=== PATIENT | female | born 1945 | race Caucasian/White ===

== ENCOUNTER 2016-09-22 08:20 | Day surgery (SDC) | payer MEDICARE, BC ==
--- NOTE | 2016-09-21 11:25 | PCM.PREANE ---
Preanesthetic Assessment - ANESTHESIA/TRANSFUSION/FAMILY HX Anesthesia/Transfusion History: Prior Anesthesia Family History of Anesthesia Reaction: No - PHYSICAL ASSESSMENT Height: 1.57 m Weight: 86.183 kg ASA Class: 2 - ALLERGIES Allergies/Adverse Reactions: Allergies Allergy/AdvReac Type Severity Reaction Status Date / Time sulfamethoxazole Allergy Cannot Verified 09/17/16 10:37 [From Bactrim] Remember trimethoprim [From Bactrim] Allergy Cannot Verified 09/17/16 10:37 Remember - BLOOD Blood Available: No - ANESTHESIA PLAN Anesthesia Type Planned: MAC PreAnesthesia Questionnaire Cardiovascular History: Reports: Heart murmur, High cholesterol, Hypertension Other Cardiovascular History: states has hx of heart murmur Gastrointestinal History: Reports: GERD Genitourinary History: Reports: UTI, recurrent Musculoskeletal History: Reports: Arthritis, Gout Endocrine/Metabolic History: Reports: Diabetes, type II, Obesity/BMI 30+ - Past Surgical History Head Surgeries/Procedures: Reports: None GI Surgical History: Reports: Colon, Colonoscopy, Hernia, abdominal Other GI Surgeries/Procedures: hx hemicolectomy for colon cancer Female Surgical History: Reports: Hysterectomy - SUBSTANCE USE Smoking Status *Q: Never Smoker Recreational Drug Use History: No - HOME MEDS Home Medications: Home Meds Allopurinol [Zyloprim] 300 mg PO DAILY 09/17/16 [History] Atenolol 100 mg PO DAILY 09/17/16 [History] Fluticasone Propionate [Flonase Allergy Relief] 2 spray NASBOTH BID PRN [History] Hydrocortisone [Proctosol-HC] 1 applic RECTAL ASDIRECTED PRN 09/17/16 [History] Simvastatin [Zocor] 20 mg PO BEDTIME 09/17/16 [History] Triamterene/Hydrochlorothiazid [Triamterene-HCTZ 75-50 MG] 0.5 tab PO DAILY 10/01 [History] Zolpidem Tartrate 10 mg PO BEDTIME PRN 09/17/16 [History] metFORMIN HCl [Metformin HCl ER] 500 mg PO ACBREAKFAST 09/17/16 [History] metFORMIN HCl [Metformin HCl] 0.5 tab PO PCDINNER 09/17/16 [History] - CURRENT (IN HOUSE) MEDS Current Meds: Current Medications Lactated Ringer's (Ringers, Lactated) 1,000 mls @ 125 mls/hr IV ASDIRECTED MELISSA Sodium Chloride (Saline Flush) 10 ml FLUSH ASDIRECTED PRN PRN Reason: Keep Vein Open Sodium Chloride (Saline Flush) 2.5 ml FLUSH ASDIRECTED PRN PRN Reason: Keep Vein Open
[~2016-09-22 08:20] MED LIST: Lactated Ringers 1,000 ML IV SCH; Sodium Chloride 0.9% 10 ML Syringe FLUSH PRN; Sodium Chloride 0.9% 2.5 ML Syringe FLUSH PRN
[2016-09-22] MEDS ORDERED: Lidocaine 2% 5 ML SDV ONE (09:51)
[2016-09-22] MEDS ORDERED: Propofol 200 MG/20 ML SDV ONE (09:52)
[2016-09-22] MEDS ORDERED: fentaNYL 100 MCG/2 ML SDV ONE (09:52)
[2016-09-22] MEDS ORDERED: Midazolam 1 MG/ML 2 ML SDV ONE (09:52)
--- NOTE | 2016-09-22 09:55 | PCM.PREANE ---
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 Respiratory: Reports: no symptoms Cardiovascular: Reports: no symptoms GI: Reports: no symptoms - PHYSICAL ASSESSMENT O2 Sat by Pulse Oximetry: 96 RR: 16 Vital Signs: Last Vital Signs Temp 36.6 C 09/22/16 08:43 Pulse 65 09/22/16 08:43 Resp 16 09/22/16 08:43 BP 138/79 09/22/16 08:43 Pulse Ox 96 09/22/16 08:43 Height: 1.57 m Weight: 86.183 kg NPO Status Date: 09/22/16 NPO Status Time: 07:00 ASA Class: 2 Mental Status: alert & oriented x3 Airway Class: Mallampati = 2 Dentition: Reports: normal dentition ROM/Head Extension: full Respiratory Status: lungs clear to auscultation bilaterally Cardiovascular Status: regular rate & rhythm, normal S1, S2, no murmur - LAB Values: Laboratory Last Values POC Glucose 113 mg/dL (60-110) H 09/22/16 08:51 - ALLERGIES Allergies/Adverse Reactions: Allergies Allergy/AdvReac Type Severity Reaction Status Date / Time sulfamethoxazole Allergy Cannot Verified 09/17/16 10:37 [From Bactrim] Remember trimethoprim [From Bactrim] Allergy Cannot Verified 09/17/16 10:37 Remember - BLOOD Blood Available: No - ANESTHESIA PLAN Beta-Tjea Last Dose Date: 09/22/16 Beta-Teja Last Dose Time: 07:00 Anesthesia Type Planned: MAC - ACKNOWLEDGEMENTS Pt an appropriate candidate for the planned anesthesia: Yes Alternatives and risks of anesthesia discussed w pt/guardian: Yes Pt/Guardian understands and agree with anesthesia plan: Yes PreAnesthesia Questionnaire Cardiovascular History: Reports: Heart murmur, High cholesterol, Hypertension Other Cardiovascular History: states has hx of heart murmur Gastrointestinal History: Reports: GERD Genitourinary History: Reports: UTI, recurrent 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: Musculoskeletal History: Reports: Arthritis, Gout Endocrine/Metabolic History: Reports: Diabetes, type II, Obesity/BMI 30+ - Past Surgical History Head Surgeries/Procedures: Reports: None GI Surgical History: Reports: Colon, Colonoscopy, Hernia, abdominal Other GI Surgeries/Procedures: hx hemicolectomy for colon cancer Female Surgical History: Reports: Hysterectomy - SUBSTANCE USE Smoking Status *Q: Never Smoker Recreational Drug Use History: No - HOME MEDS Home Medications: Home Meds Allopurinol [Zyloprim] 300 mg PO DAILY 09/17/16 [History] Atenolol 100 mg PO DAILY 09/17/16 [History] Fluticasone Propionate [Flonase Allergy Relief] 2 spray NASBOTH BID PRN [History] Hydrocortisone [Proctosol-HC] 1 applic RECTAL ASDIRECTED PRN 09/17/16 [History] Simvastatin [Zocor] 20 mg PO BEDTIME 09/17/16 [History] Triamterene/Hydrochlorothiazid [Triamterene-HCTZ 75-50 MG] 0.5 tab PO DAILY 10/01 [History] Zolpidem Tartrate 10 mg PO BEDTIME PRN 09/17/16 [History] metFORMIN HCl [Metformin HCl ER] 500 mg PO ACBREAKFAST 09/17/16 [History] metFORMIN HCl [Metformin HCl] 0.5 tab PO PCDINNER 09/17/16 [History] - CURRENT (IN HOUSE) MEDS Current Meds: Current Medications Lactated Ringer's (Ringers, Lactated) 1,000 mls @ 125 mls/hr IV ASDIRECTED MELISSA Last Admin: 09/22/16 08:46 Dose: 125 mls/hr Sodium Chloride (Saline Flush) 10 ml FLUSH ASDIRECTED PRN PRN Reason: Keep Vein Open Sodium Chloride (Saline Flush) 2.5 ml FLUSH ASDIRECTED PRN PRN Reason: Keep Vein Open
--- NOTE | 2016-09-22 12:47 | PCM.OPNOTE ---
- General Post-Op/Procedure Note Date of Surgery/Procedure: 09/22/16 Operative Procedure(s): Screening colonoscopy Findings: Normal colon Pre Op Diagnosis: History of colon cancer Post-Op Diagnosis: History of colon cancer Anesthesia Technique: MADAN Primary Surgeon: Shante Armstrong Condition: Good
--- NOTE | 2016-09-22 12:59 | PCM.POSTAN ---
POST ANESTHESIA ASSESSMENT - MENTAL STATUS Mental Status: alert, oriented - RESPIRATORY Respiratory Status: respiratory rate WNL, airway patent, O2 saturation stable - CARDIOVASCULAR CV Status: pulse rate WNL, blood pressure stable - GASTROINTESTINAL GI Status: no symptoms - POST OP HYDRATION Hydration Status: adequate & stable
--- NOTE | 2016-09-22 13:00 | PCM48HPAN ---
Post Anesthesia Note - EVALUATION WITHIN 48HRS OF ANESTHETIC Vital Signs in Normal Range: Yes Patient Participated in Evaluation: Yes Respiratory Function Stable: Yes Airway Patent: Yes Cardiovascular Function Stable: Yes Hydration Status Stable: Yes Pain Control Satisfactory: Yes Nausea and Vomiting Control Satisfactory: Yes Mental Status Recovered: Yes
[2016-09-22 13:09] VITALS: BP 140/74
--- NOTE | 2016-09-23 02:51 | OR ---
SURGEON: SUNSHINE TORRES MD DATE OF PROCEDURE: 09/22/2016 PREOPERATIVE DIAGNOSIS: History of colon cancer status post right hemicolectomy. POSTOPERATIVE DIAGNOSIS: History of colon cancer status post right hemicolectomy, hemorrhoids and diverticulosis. PROCEDURE PERFORMED: Screening colonoscopy. INSTRUMENT USED: Olympus colonoscope. ANESTHESIA: MAC. EXTENT OF EXAM: To the cecum. PREPARATION: Good. LIMITATIONS: None. INDICATIONS FOR EXAMINATION: The patient is a 70-year-old female with a personal history of colon cancer status post right hemicolectomy. She is here for a followup screening colonoscopy. We discussed the risks of the procedure including bleeding, infection, or damage to surrounding structures, including perforation. We discussed the procedure itself as well as expected perioperative course. After the patient was given ample time to ask questions, the patient verbalized understanding and wished to proceed. Preoperative clearance was obtained via the patient's primary care provider. PROCEDURE IN DETAIL: The patient was brought to the endoscopy suite and placed in left lateral decubitus position. A time-out was completed verifying the patient's name, age, date of , allergies, and procedure to be performed. Monitored anesthesia care was induced and continuous oxygen was provided via face mask throughout the procedure. After adequate sedation was achieved, a digital rectal exam was performed. This showed moderate hemorrhoidal disease with hypertrophied papilla, but was otherwise within normal limits. A well lubricated colonoscope was then inserted in the rectum and advanced under direct visualization to the level of the patient's anastomosis. A photograph was taken of this area and meticulous inspection was undertaken to identify any evidence of recurrence. The anastomosis appeared healthy and no polyps or masses concerning for return of malignancy was noted. The scope was then fully withdrawn while examining the color, texture, anatomy, and integrity of the mucosa from the cecum to the anal canal. The findings were consistent with diffuse diverticular disease throughout the patient's descending and sigmoid colon. The scope was then brought into the rectum and retroflexed to allow visualization of the anal canal opening. This appeared normal and a photograph was taken. The scope was then straightened out and removed from the patient. The procedure was terminated. The patient was transferred to the recovery room in stable condition. Time from anastomosis to anus was 12 min. ENDOSCOPIC DIAGNOSIS: Diverticulosis, mild hemorrhoidal disease, and no evidence of polyps or masses within the colon. RECOMMENDATION: Follow up in clinic in one year. LYNETTE / LETA /[id number] [place]
== END 2016-09-22 13:20 | disposition home or self-care (01) ==
LOC: MW.SDS 08:20
PROVIDERS: ATTEND Surgery
PROC: 0DJD8ZZ Inspection of Lower Intestinal Tract, Via Natural or Artificial Opening Endoscopic (ICD-10-PCS; principal; 2016-09-22)
DX: Z12.11 Encounter for screening for malignant neoplasm of colon (principal); K57.30 Diverticulosis of large intestine without perforation or abscess without bleeding; K64.9 Unspecified hemorrhoids; Z85.038 Personal history of other malignant neoplasm of large intestine; Z98.0 Intestinal bypass and anastomosis status; E11.9 Type 2 diabetes mellitus without complications; I10 Essential (primary) hypertension; E78.00 Pure hypercholesterolemia, unspecified; M10.9 Gout, unspecified; E66.9 Obesity, unspecified; Z79.899 Other long term (current) drug therapy
CPT/HCPCS: 82962; G0105; J2250; J3010; J7120; 00810; J2704

== ENCOUNTER → 2016-11-29 | Outpatient (CLI) | payer MEDICARE, BC | LOC: MW.CHIM 09:23 | PROVIDERS: ATTEND Internal Medicine | DX: E78.00 Pure hypercholesterolemia, unspecified (principal); I10 Essential (primary) hypertension; E11.9 Type 2 diabetes mellitus without complications; M10.9 Gout, unspecified | CPT/HCPCS: 36415; 80053; 80061; 83036; 84439; 84443; 84550; 85025 ==

== ENCOUNTER → 2016-12-01 | Outpatient (CLI) | payer MEDICARE, BC | LOC: MW.CHIM 08:00 | PROVIDERS: ATTEND Internal Medicine | DX: E11.9 Type 2 diabetes mellitus without complications (principal); K21.9 Gastro-esophageal reflux disease without esophagitis; E78.5 Hyperlipidemia, unspecified; E66.9 Obesity, unspecified | CPT/HCPCS: 99214 ==

== ENCOUNTER 2021-06-04 23:38 | Emergency (ER) | payer MEDICARE, BC ==
[2021-06-05] MEDS ORDERED: Sodium Chloride 0.9% 10 ML Syringe FLUSH PRN (00:11)
[2021-06-05] MEDS ORDERED: Ondansetron 4 MG/2 ML SDV IVPUSH ONE ×2 (00:11→04:15)
[2021-06-05] MEDS ORDERED: Sodium Chloride 0.9% 2.5 ML Syringe FLUSH PRN (00:11)
[2021-06-05] MEDS ORDERED: fentaNYL 50 MCG/ML SDV IVPUSH ONE ×3 (00:11→04:15)
[2021-06-05] MEDS ORDERED: Sodium Chloride 0.9% 1,000 ML IV ONE (00:11)
[2021-06-05 00:28] LABS: BLOOD UREA NITROGEN,BUN 33 mg/dL (7.0-18.0); CARBON DIOXIDE,CO2 29.7 mmol/L (21.0-32.0); CHLORIDE,CL 102 mmol/L (98-107); GLUCOSE RANDOM 148 mg/dL (74-106); LIPASE 137 U/L (73-393); POTASSIUM,K 4.4 mmol/L (3.5-5.1); SODIUM,NA 140 mmol/L (136-145)
--- NOTE | 2021-06-05 01:12 | EDM.PDOC ---
ED HPI GENERAL MEDICAL PROBLEM - General Chief Complaint: Abdominal Pain Stated Complaint: HERNIA PAIN Time Seen by Provider: 06/05/21 00:06 - History of Present Illness INITIAL COMMENTS - FREE TEXT/NARRATIVE: HISTORY AND PHYSICAL: History of present illness: This is a 75-year-old female with history significant for colon cancer status post resection, history of diverticulosis, status post ANMOL, who presents ER today secondary to pain over her umbilical hernia site. Patient reports that she has had a incisional hernia in that area for quite some time. She reports whenever she strains or coughs that her hernia pops out however when she lays down in bed it usually self reduces. Patient reports that since the evening of June 03, that her hernia "popped out "and did not reduce when she lay down in bed. Patient reports that she was having pain discomfort throughout the course of the day today but did not want to come to the ER hoping that it would self reduce. Patient reports that she has had a bowel movement on the morning of June 04 however since then she has not had any flatus or bowel movements. Patient reports decreased p.o. intake. Patient denies any recent fevers, shakes, chills, vomiting. Patient reports she is nauseous. Patient denies any chest pain. Patient has any cough cold or rhinorrhea. Patient denies any melena or bright red blood per rectum preceding the symptoms. Review of systems: As per history of present illness and below otherwise all systems reviewed and negative. Past medical history: As per history of present illness and as reviewed below otherwise noncontributo ry. Surgical history: As per history of present illness and as reviewed below otherwise noncontributory. Social history: No reported history of drug abuse. Family history: As per history of present illness and as reviewed below otherwise noncontributory. Physical exam: This patient was seen and evaluated during the 2019 SARS-CoV-2 novel coronavirus pandemic period. Community viral transmission is ongoing at time of this encounter and the emergency department is operating under pandemic response procedures. Constitutional: Patient is oriented to person, place, and time. Appears well- developed and well-nourished. No distress. HEENT: Moist mucous membranes Head: Normocephalic and atraumatic Eyes: Right eye exhibits no discharge. Left eye exhibits no discharge. No scleral icterus Neck: Normal range of motion. No tracheal deviation present. Cardiovascular: Normal rate and regular rhythm. Pulmonary: Effort normal, no respiratory distress. Abd: Soft, nondistended, no rebound/guarding, no psoas or obturator signs, no tenderness at Mcberney's point, no Leyva's sign. Pt does not present with an exam that would be consistent with an acute surgical abdomen at this time. Patient does have a hard palpable mass to her right paraumbilical region that is nonreducible. It is slightly warm to touch. Musculoskeletal: Normal range of motion Neurologic: Alert and oriented to person, place and time. Skin: [place], warm and dry. Psychiatric: Normal mood and affect. Behavior is normal. Judgment and thought content normal. Nursing note and vital signs have been reviewed Diagnostics: CBC, CMP, CT of the abdomen pelvis with IV contrast. Therapeutics: [Fentanyl, Zofran, NSS Assessment and plan: 75-year-old female who presents ER today secondary to concern of possible incarcerated ventral hernia/incisional hernia. Patient will have labs drawn as well as obtain a CT scan of her abdomen pelvis to further evaluate her abdominal pain. Patient was given fentanyl in the ED with significant improvement in her pain and discomfort. While in the ED I did try to gently massage the hernia and was unable to reduce the hernia defect. CT report: New finding of the small bowel obstruction related to the large right anterior upper pelvic wall hernia. There is an area obstruction within the hernia sac itself, probably an adhesion. A second area of obstruction is along the posterior wall of the hernia neck involving the more proximal small bowel. There is no sign of bowel perforation. No sign of free air. CT of the abdomen shows minimal ascites with a small amount of fluid along the anterior surface of the liver with no sign of any pelvic free fluid. New herniation of the cecum into the large right anterior upper pelvic wall hernia. Again seen are changes of the mesh hernia repair in the periumbilical region with no additional hernia through the mesh or to the left of the mesh. The large right anterior pelvic wall hernia occurs along the right lateral margin of the mesh. Case was discussed with Dr. Amaya our surgeon on-call who is agreed to come in and evaluate patient for possible admission. Dr. June is currently at bedside and has evaluated the CT scan. Dr. June is concerned at this might be outside his scope of practice given the size of the hernia defect itself and the need for bowel resection with repair. I have contacted [facility] and they have no availability for transfer. I have contacted [facility] they have no availability for transfer. I have contacted [facility], they have no availability for transfer. I have contacted [facility], they are not excepting transfers at this time. I have contacted [facility], they do not have the ability to accept transfers at this time. I have called the transfer center at [phone] and have they have assisted me with obtaining transfer to [facility]. I have discussed the case with Dr. Campos from the emergency department who has reviewed the case with his surgeon cottonseed meat presser. They have called back and reported that they will be able to assist us and will accept the patient in transfer for assistance with surgical repair of this patient's hernia and bowel obstruction. Patient has remained clinically and hemodynamically stable throughout her ED visit. Patient has required 2 doses of fentanyl 50 mcg IV while in the ED. Patient received 1 L of NSS as well as Zofran and she does feel much improved. Patient has not had any further episodes of emesis here in the ED. Patient reports that she has felt nauseous at home. She reports her last bowel movement was morning with no flatus since. Given the bowel obstruction and the incarcerated hernia, I feel that the patient will need urgent evaluation. At this time, we do not have access to ambulance transfer and therefore I feel that the patient will require transfer by air to expedite her care and need for surgical intervention. I feel that awaiting ambulance transfer at this time could be detrimental to the patient's health given the delay of care. At this time we have not been assured of any ambulance transfer prior to 8 AM. At this time we have had a patient waiting for ambulance transfer for greater than 4 hours and they have been told that they will not have transport until prior to 8 AM as well. Given these facts I feel that air transport is the only option for this patient. Definitive disposition and diagnosis as appropriate pending reevaluation and review of above. Abdomen Pain Score (Numeric/FACES): 3 - Related Data Allergies Allergy/AdvReac Type Severity Reaction Status Date / Time sulfamethoxazole Allergy Cannot Verified 06/04/21 23:50 [From Bactrim] Remember trimethoprim [From Bactrim] Allergy Cannot Verified 06/04/21 23:50 Remember Home Meds: Home Meds Allopurinol [Zyloprim] 300 mg PO DAILY 09/17/16 [History] Fluticasone Propionate [Flonase Allergy Relief] 2 spray NASBOTH BID PRN 09/17/16 [History] Hydrocortisone [Proctosol-HC] 1 applic RECTAL ASDIRECTED PRN 09/17/16 [History] Simvastatin [Zocor] 20 mg PO BEDTIME 09/17/16 [History] Triamterene/Hydrochlorothiazid [Triamterene-HCTZ 75-50 MG] 0.5 tab PO DAILY 09/17/16 [History] Zolpidem Tartrate 10 mg PO BEDTIME PRN 09/17/16 [History] atenoloL [Atenolol] 100 mg PO DAILY 09/17/16 [History] metFORMIN HCl [Metformin ER Osmotic] 500 mg PO ACBREAKFAST 09/17/16 [History] metFORMIN HCl [Metformin HCl] 0.5 tab PO PCDINNER 09/17/16 [History] Past Medical History HEENT History: Reports: Cataract Cardiovascular History: Reports: Heart Murmur, High Cholesterol, Hypertension Other Cardiovascular History: states has hx of heart murmur Respiratory History: Reports: None Gastrointestinal History: Reports: GERD Genitourinary History: Reports: UTI, 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: 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: Musculoskeletal History: Reports: Arthritis, Gout Neurological History: Reports: None Psychiatric History: Reports: Anxiety Endocrine/Metabolic History: Reports: Diabetes, Type II, Obesity/BMI 30+ Insulin Pump Model and Online Services Manager: None Hematologic History: Reports: None Immunologic History: Reports: None Oncologic (Cancer) History: Reports: Colon Dermatologic History: Reports: None - Infectious Disease History Infectious Disease History: Reports: None - Past Surgical History Head Surgeries/Procedures: Reports: None HEENT Surgical History: Reports: None GI Surgical History: Reports: Colon, Colonoscopy, Hernia, Abdominal Other GI Surgeries/Procedures: hx hemicolectomy for colon cancer Female Surgical History: Reports: Hysterectomy Social & Family History - Caffeine Use Caffeine Use: Reports: None - Recreational Drug Use Recreational Drug Use: No ED ROS GENERAL - Review of Systems Review Of Systems: See Below ED EXAM, GENERAL - Physical Exam Exam: See Below Course - Vital Signs Last Recorded V/S: Last Vital Signs Temp 99 F 06/04/21 23:50 Pulse 72 06/05/21 01:30 Resp 18 06/05/21 01:30 BP 146/52 H 06/05/21 01:30 Pulse Ox 96 06/05/21 01:30 - Orders/Labs/Meds Orders: Active Orders 24 hr Category Date Time Status EKG Documentation Completion [RC] AM Care 06/05/21 00:11 Active Sodium Chloride 0.9% [Saline Flush] Med 06/05/21 00:11 Active 10 ml FLUSH ASDIRECTED PRN Sodium Chloride 0.9% [Saline Flush] Med 06/05/21 00:11 Active 2.5 ml FLUSH ASDIRECTED PRN Saline Lock Insert [OM.PC] Stat Oth 06/05/21 00:11 Ordered Medication Orders Sodium Chloride (Sodium Chloride 0.9% 10 Ml Syringe) 10 ml FLUSH ASDIRECTED PRN PRN Reason: Keep Vein Open Sodium Chloride (Sodium Chloride 0.9% 2.5 Ml Syringe) 2.5 ml FLUSH ASDIRECTED PRN PRN Reason: Keep Vein Open Labs: Laboratory Tests 06/05/21 06/05/21 06/05/21 Range/Units 00:00 00:00 00:25 WBC 10.87 (4.0-11.0) K/uL RBC 4.52 (4.30-5.90) M/uL Hgb 14.1 (12.0-16.0) g/dL Hct 43.6 (36.0-46.0) % MCV 96.5 (80.0-98.0) fL MCH 31.2 (27.0-32.0) pg MCHC 32.3 (31.0-37.0) g/dL RDW Std Deviation 46.5 (28.0-62.0) fl RDW Coeff of Grisel 14 (11.0-15.0) % Plt Count 294 (150-400) K/uL MPV 9.20 (7.40-12.00) fL Neut % (Auto) 82.1 H (48.0-80.0) % Lymph % (Auto) 6.9 L (16.0-40.0) % Perry % (Auto) 9.2 (0.0-15.0) % Eos % (Auto) 1.6 (0.0-7.0) % Baso % (Auto) 0.2 (0.0-1.5) % Neut # (Auto) 8.9 H (1.4-5.7) K/uL Lymph # (Auto) 0.8 (0.6-2.4) K/uL Perry # (Auto) 1.0 H (0.0-0.8) K/uL Eos # (Auto) 0.2 (0.0-0.7) K/uL Baso # (Auto) 0.0 (0.0-0.1) K/uL Sodium 140 (136-145) mmol/L Potassium 4.4 (3.5-5.1) mmol/L Chloride 102 (98-107) mmol/L Carbon Dioxide 29.7 (21.0-32.0) mmol/L BUN 33 H (7.0-18.0) mg/dL Creatinine 1.6 H (0.6-1.0) mg/dL Est Cr Clr Drug Dosing TNP Estimated GFR (MDRD) 31.3 ml/min Glucose 148 H (74-106) mg/dL Calcium 9.9 (8.5-10.1) mg/dL Total Bilirubin 0.7 (0.2-1.0) mg/dL AST 18 (15-37) IU/L ALT 31 (14-63) IU/L Alkaline Phosphatase 47 (46-116) U/L Total Protein 7.6 (6.4-8.2) g/dL Albumin 3.5 (3.4-5.0) g/dL Globulin 4.1 H (2.6-4.0) g/dL Albumin/Globulin Ratio 0.9 (0.9-1.6) Lipase 137 (73-393) U/L Urine Color Urine Appearance Urine pH (5.0-8.0) Ur Specific [place] (1.001-1.035) Urine Protein (NEGATIVE) mg/dL Urine Glucose (UA) (NEGATIVE) mg/dL Urine Ketones (NEGATIVE) mg/dL Urine Occult Blood (NEGATIVE) Urine Nitrite (NEGATIVE) Urine Bilirubin (NEGATIVE) Urine Urobilinogen (<2.0) EU/dL Ur Leukocyte Esterase (NEGATIVE) Urine RBC (0-2/HPF) Urine WBC (0-5/HPF) Ur Epithelial Cells (NONE-FEW) Urine Bacteria (NEGATIVE) SARS-CoV-2 RNA (DELORES) NEGATIVE (NEGATIVE) 06/05/21 Range/Units 02:25 WBC (4.0-11.0) K/uL RBC (4.30-5.90) M/uL Hgb (12.0-16.0) g/dL Hct (36.0-46.0) % MCV (80.0-98.0) fL MCH (27.0-32.0) pg MCHC (31.0-37.0) g/dL RDW Std Deviation (28.0-62.0) fl RDW Coeff of Grisel (11.0-15.0) % Plt Count (150-400) K/uL MPV (7.40-12.00) fL Neut % (Auto) (48.0-80.0) % Lymph % (Auto) (16.0-40.0) % [place] % (Auto) (0.0-15.0) % Eos % (Auto) (0.0-7.0) % Baso % (Auto) (0.0-1.5) % Neut # (Auto) (1.4-5.7) K/uL Lymph # (Auto) (0.6-2.4) K/uL Perry # (Auto) (0.0-0.8) K/uL Eos # (Auto) (0.0-0.7) K/uL Baso # (Auto) (0.0-0.1) K/uL Sodium (136-145) mmol/L Potassium (3.5-5.1) mmol/L Chloride (98-107) mmol/L Carbon Dioxide (21.0-32.0) mmol/L BUN (7.0-18.0) mg/dL Creatinine (0.6-1.0) mg/dL Est Cr Clr Drug Dosing Estimated GFR (MDRD) ml/min Glucose (74-106) mg/dL Calcium (8.5-10.1) mg/dL Total Bilirubin (0.2-1.0) mg/dL AST (15-37) IU/L ALT (14-63) IU/L Alkaline Phosphatase (46-116) U/L Total Protein (6.4-8.2) g/dL Albumin (3.4-5.0) g/dL Globulin (2.6-4.0) g/dL Albumin/Globulin Ratio (0.9-1.6) Lipase (73-393) U/L Urine Color YELLOW Urine Appearance CLEAR Urine pH 6.0 (5.0-8.0) Ur Specific [place] 1.020 (1.001-1.035) Urine Protein 30 H (NEGATIVE) mg/dL Urine Glucose (UA) NEGATIVE (NEGATIVE) mg/dL Urine Ketones NEGATIVE (NEGATIVE) mg/dL Urine Occult Blood NEGATIVE (NEGATIVE) Urine Nitrite NEGATIVE (NEGATIVE) Urine Bilirubin NEGATIVE (NEGATIVE) Urine Urobilinogen 0.2 (<2.0) EU/dL Ur Leukocyte Esterase NEGATIVE (NEGATIVE) Urine RBC 0-1 (0-2/HPF) Urine WBC 0-2 (0-5/HPF) Ur Epithelial Cells MODERATE (NONE-FEW) Urine Bacteria RARE (NEGATIVE) SARS-CoV-2 RNA (DELORES) (NEGATIVE) Meds: Medications Generic Name Dose Route Start Last Admin Trade Name Ruth Ann PRN Reason Stop Dose Admin Sodium Chloride 10 ml 06/05/21 00:11 Sodium Chloride 0.9% 10 Ml Syringe FLUSH ASDIRECTED PRN Keep Vein Open Sodium Chloride 2.5 ml 06/05/21 00:11 Sodium Chloride 0.9% 2.5 Ml Syringe FLUSH ASDIRECTED PRN Keep Vein Open Discontinued Medications Generic Name Dose Route Start Last Admin Trade Name Ruth Ann PRN Reason Stop Dose Admin Fentanyl 50 mcg 06/05/21 00:11 06/05/21 00:21 Fentanyl 50 Mcg/Ml Sdv IVPUSH 06/05/21 00:12 50 mcg ONETIME ONE Administration Fentanyl 50 mcg 06/05/21 03:19 06/05/21 03:28 Fentanyl 50 Mcg/Ml Sdv IVPUSH 06/05/21 03:20 50 mcg ONETIME ONE Administration Sodium Chloride 1,000 mls @ 999 mls/hr 06/05/21 00:11 06/05/21 00:21 Normal Saline IV 06/05/21 01:11 999 mls/hr .Bolus ONE Administration Iopamidol 50 ml 06/05/21 01:39 06/05/21 01:40 Iopamidol 755 Mg/Ml 500 Ml Multipack Bottle IVPUSH 06/05/21 01:40 50 ml ONETIME STA Administration Ondansetron HCl 4 mg 06/05/21 00:11 06/05/21 00:21 Ondansetron 4 Mg/2 Ml Sdv IVPUSH 06/05/21 00:12 4 mg ONETIME ONE Administration Departure - Departure Time of Disposition: 03:52 Disposition: DC/Tfer to Acute Hospital 02 Condition: Good Clinical Impression: Small bowel obstruction, Incarcerated hernia of abdominal cavity - Discharge Information Referrals: Chandler Haines MD [Primary Care Provider] - Forms: ED Department Discharge Sepsis Event Note (ED) - Evaluation Sepsis Screening Result: No Definite Risk - Focused Exam Vital Signs: Vital Signs Temp Pulse Resp BP Pulse Ox 06/05/21 01:30 72 18 146/52 H 96 06/04/21 23:50 99 F 78 18 150/71 H 97 - My Orders Last 24 Hours: My Active Orders 06/05/21 00:11 EKG Documentation Completion [RC] AM Sodium Chloride 0.9% [Saline Flush] 10 ml FLUSH ASDIRECTED PRN Sodium Chloride 0.9% [Saline Flush] 2.5 ml FLUSH ASDIRECTED PRN Saline Lock Insert [OM.PC] Stat - Assessment/Plan Last 24 Hours: My Active Orders 06/05/21 00:11 EKG Documentation Completion [RC] AM Sodium Chloride 0.9% [Saline Flush] 10 ml FLUSH ASDIRECTED PRN Sodium Chloride 0.9% [Saline Flush] 2.5 ml FLUSH ASDIRECTED PRN Saline Lock Insert [OM.PC] Stat
[2021-06-05] MEDS ORDERED: Iopamidol 755 MG/ML 500 ML Multipack Bottle IVPUSH STA (01:39)
--- NOTE | 2021-06-05 02:01 | CT ---
INDICATION: Hernia pain. Possible incarceration. COMPARISON: CT of the abdomen and pelvis from 12/05/2014. TECHNIQUE: CT examination of the abdomen and pelvis was performed with the uneventful intravenous administration of 50 cc of Isovue 370 while 3 mm thick axial sections were obtained from the lung bases through the pubic symphysis. Intravenous contrast volume was reduced because of the patient`s low GFR. Oral contrast was not administered. Please note that all CT scans at this facility use dose modulation, iterative reconstruction, and/or weight-based dosing when appropriate to reduce radiation dose to as low as reasonably achievable. FINDINGS: There is new partial small bowel obstruction with moderate dilatation of multiple loops of small bowel in the right abdomen and pelvis. The obstruction is related to the large right anterior upper pelvic wall hernia, with 2 areas of obstruction. The more distal obstruction is located within the hernia sac, best seen on axial image 140 series 201, where there is an abrupt change in caliber with tethering of the bowel, suggesting an adhesion. The more distal obstruction is seen where the small bowel passes into the hernia, along the posterior hernia neck, best seen on axial image 130 series 201. The small bowel is more distended proximal to the hernia neck. There is new mild ascites, with a small amount of fluid seen overlying the liver. There is no sign of free fluid in the pelvis. There is no sign of any free air. In the abdomen, the liver, spleen, pancreas, and adrenals are normal in appearance. The cyst seen arising from the kidneys had increased in size, the largest cyst seen arising from the interpolar region, now measuring 5.4 x 3.3 centimeters, previously 3.5 x 1.8 centimeters. There is a pair of 2 millimeter nonobstructive calculi in the lower pole of the right kidney, unchanged compared to the previous study. Air is a nonobstructive 3 millimeter calculus in the lateral lower pole of the left kidney, also unchanged compared to the previous study. A tiny 1 millimeter calculus is seen in the interpolar region, new compared to the previous study. The gallbladder is normal in appearance. The abdominal aorta is normal in caliber with no sign of dilatation. There is no sign of retroperitoneal mass or adenopathy. The stomach is normal in appearance. There is moderate diverticulosis of the left transverse colon and prominent diverticulosis of the descending colon, more prominent than seen on the previous study. The cecum is now herniated into the superior portion of the large right anterior upper pelvic wall hernia described above, with surgical clips at the area of the appendix, consistent with previous appendectomy. Again seen are changes of mesh hernia repair in the periumbilical region with no sign of recurrence of a hernia through the mesh. In the pelvis, there is no change in severe diverticulosis of the sigmoid colon. The uterus is again seen to be absent and the adnexal regions are normal in appearance. The urinary bladder is normal in appearance. There is no sign of pelvic or inguinal mass or adenopathy. There is no sign of free air or free fluid in the abdomen or pelvis. The lung bases are clear. The osseous structures are normal in appearance for the patient`s age. IMPRESSION: New findings of small bowel obstruction related to the large right anterior upper pelvic wall hernia. There is an area of obstruction within the hernia sac itself, probably an adhesion. A 2nd area of obstruction is along the posterior wall of the hernia neck involving the more proximal small bowel. No sign of bowel perforation. No sign of free air. CT of the abdomen shows minimal ascites, with a small amount of fluid along the anterior surface of the liver, with no sign of any pelvic free fluid. Increase in size of multiple bilateral renal cysts, probably of no clinical concern. Worsening of diverticulosis of the transverse colon, now moderate. Worsening of diverticulosis of the descending colon, now severe. CT of the pelvis shows stable severe diverticulosis of the sigmoid colon with no sign of diverticulitis. New herniation of the cecum into the large right anterior upper pelvic wall hernia. Again seen are changes of mesh hernia repair in the periumbilical region with no additional hernia through the mesh or to the left of the mesh. The large right anterior pelvic wall hernia occurs along the right lateral margin of the mesh. Status post hysterectomy. Please note that all CT scans at this facility use dose modulation, iterative reconstruction, and/or weight-based dosing when appropriate to reduce radiation dose to as low as reasonably achievable. Dictated by Todd Real MD @ 06/05/2021 2:00:29 AM (Electronically Signed)
--- NOTE | 2021-06-05 03:57 | CONS ---
DATE OF CONSULTATION: 06/05/2021 DATE OF : 1945 PRIMARY CARE PHYSICIAN: Chandler Haines There is a consult from Dr. Chavez. CONCERNING QUESTION: Incarcerated hernia. HISTORY OF PRESENT ILLNESS: The patient is a 75-year-old obese lady, had colon cancer and is status post a right hemicolectomy and resulted in incisional hernia and has mesh repair. All this happened in about 2004. The hernia has since grown much bigger. The patient was in her usual health until about 12 hours ago, cannot keep anything down, threw up, and sought help in the emergency room. The patient mentioned the pain was very bad and her last well-formed stool was about 24 hours ago. In the emergency room workup, CAT scan shows possible several area of small bowel obstruction and also large recurrent hernia at the right side of the abdomen and also dilated small bowel, suggests small bowel obstruction. PAST MEDICAL HISTORY: Significant for diabetes and hypertension. PAST SURGICAL HISTORY: As alluded above. ALLERGIES: Please refer to nursing for details. MEDICATION: Please refer to nursing for details. PHYSICAL EXAMINATION: GENERAL: A very polite and very pleasant lady, in mild distress. HEENT: Normocephalic, atraumatic. Sclerae anicteric. LUNGS: Clear to auscultation. HEART: Regular rate and rhythm. ABDOMEN: With very hard feeling to the right side of the umbilicus spanning at least 15 cm and tender to the touch. SKIN: Intact. IMPRESSION: Incarcerated recurrent large hernia, probably abdominal wall defect with previous mesh and now with radiology imaging suggesting small bowel obstruction. The patient would benefit from transferring to a tertiary care center and possible require the use of biometrics in repairing the hernia. Plan has been discussed with the ER provider, Dr. Chavez. The patient with comorbidity of obesity, diabetes, hypertension, age 75, recurrent hernia, large abdominal wall defect, she will definitely be transferred to a tertiary care center to manage her bowel obstruction as well as hernia repair. TABATHA / MODL /[id number]
[2021-06-05] MEDS ORDERED: Lidocaine 2% Viscous Solution 15 ML Cup PO ONE (04:12)
[2021-06-05 04:24] VITALS: BP 144/58; PULSE 74
--- NOTE | 2021-06-05 04:24 | PCM.EKG ---
#1 Interpretation EKG Date: 06/05/21 Time: 00:22 EKG Interpretation Comments: EKG: As interpreted by ER physician: Kathy: Nonspecific ST-T wave abnormalities Normal axis No evidence of ST elevation TN Normal sinus rhythm heart rate of 73
--- NOTE | 2021-06-05 06:06 | CR ---
Indication: NG tube placement Comparison: None available. Technique: Single AP view chest Findings: There is satisfactory position of nasogastric tube without evidence of obvious coiling. There is hyperinflation and mild chronic interstitial change. There is no focal consolidation, effusion, or pneumothorax. The cardiomediastinal silhouette is within normal limits. The bony thorax is grossly intact. Impression: Hyperinflation and chronic interstitial changes without dense consolidation. Satisfactory position of nasogastric tube. Dictated by Jose Carlos Cornejo MD @ 06/05/2021 6:04:57 AM (Electronically Signed)
--- NOTE | 2021-06-05 06:08 | CR ---
Indication: Confirm NG/OG tube placement Technique: Supine view abdomen was obtained Comparison: None available. Findings: There is demonstration of dilated air-fluid levels within the central bowel. There is nasogastric tube in satisfactory position. There is no pathologic calculus. There is no intraabdominal free air. The visualized osseus structures are grossly intact. Impression: Satisfactory position of nasogastric tube. Scattered air-fluid levels throughout partially visualized loops of bowel. Dictated by Jose Carlos Cornejo MD @ 06/05/2021 6:06:32 AM (Electronically Signed)
== END 2021-06-05 05:35 ==
LOC: MW.ED 23:38
DX: K46.0 Unspecified abdominal hernia with obstruction, without gangrene (principal); E78.00 Pure hypercholesterolemia, unspecified; I10 Essential (primary) hypertension; M10.9 Gout, unspecified; E11.9 Type 2 diabetes mellitus without complications; E66.9 Obesity, unspecified; Z68.35 Body mass index [BMI] 35.0-35.9, adult; Z88.2 Allergy status to sulfonamides; Z79.84 Long term (current) use of oral hypoglycemic drugs; Z79.899 Other long term (current) drug therapy; Z20.822 Contact with and (suspected) exposure to COVID-19
CPT/HCPCS: 36415; 71045; 74018; 74177; 80053; 81001; 83690; 85025; 93005; 96374; 96375; 96376; 99285; A9270; J2405; J3010; J7030; Q9967; U0002